=== PATIENT | female | born 1990 | race American Indian/Alaskan Native ===

== ENCOUNTER 2016-10-24 17:39 | Emergency (ER) | payer MEDICAID ==
[2016-10-24] MEDS ORDERED: NACL 0.9% 1000 ML 1,000 ML IV ONE (17:44)
[2016-10-24] MEDS ORDERED: ZOFRAN IV ONE (17:45)
[2016-10-24] MEDS ORDERED: CATAPRES ONE (18:17)
[2016-10-24 18:19] LABS: Basophils % (Auto) 1.3 % (0.0-1.8); Eosinophils % (Auto) 0.9 % (0.0-4.3); Mean Corpuscular HGB Conc 31 % (30-34); Platelet Count 212 K/mm3 (140-440); Red Blood Count 5.58 M/mm3 (3.65-5.03); Red Cell Distribution Width 16.4 % (13.2-15.2); White Blood Count 10.8 K/mm3 (4.5-11.0)
[2016-10-24] MEDS ORDERED: CATAPRES PO ONE (18:22)
[2016-10-24 18:30] LABS: Hematocrit 38.6 % (30.3-42.9); Hemoglobin 11.8 gm/dl (10.1-14.3)
[2016-10-24 18:31] LABS: Mean Corpuscular Hemoglobin 21 pg (28-32); Mean Corpuscular Volume 69 fl (79-97)
[2016-10-24 18:39] LABS: Anion Gap 18 mmol/L; BUN/Creatinine Ratio 13.33; Blood Urea Nitrogen 16 mg/dL (7-17); Calcium 8.9 mg/dL (8.4-10.2); Carbon Dioxide 24 mmol/L (22-30); Chloride 104.7 mmol/L (98-107); Glucose 99 mg/dL (65-100); Potassium 3.6 mmol/L (3.6-5.0); Sodium 143 mmol/L (137-145)
--- NOTE | 2016-10-24 18:49 | Emergency Department Report ---
Entered by XIOMARA GAN, acting as scribe for MARCELLA CORTEZ PA. Chief Complaint: High BP Stated Complaint: ELEVATED BP Time Seen by Provider: 10/24/16 17:43 - HPI History of Present Illness: Patient presents to the ED c/o elevated blood pressure that began today. Patient states her OB sent her to the ED because her blood blood pressure is elevated. Denies bilateral leg swelling, chest pain, headache, nausea, and vomiting. In triage, her blood pressure is 184/128. Denies currently being . Hx of high blood pressure with first . PMHx of kidney insufficiency. - ROS Review of Systems: All systems are negative unless stated in HPI above. - Exam Vital Signs: Vital Signs 10/24/16 18:06 Temperature 98.5 F Pulse Rate 107 H Respiratory 18 Rate Blood Pressure 184/128 O2 Sat by Pulse 100 Oximetry Physical Exam: General: well nourished, well developed, nontoxic in appearance, in no acute distress Respiratory: lungs clear to auscultation bilaterally. No rhonchi. No wheezes. No rales. Cardiovascular: S1/S2 tachycardic at 107 bpm MSE screening note: Focused history and physical exam performed. Due to findings the following was ordered: ED Medical Decision Making - Lab Data Result diagrams: 10/24/16 18:00 10/24/16 18:00 - Medical Decision Making Medical decision making: Patient seen by provider in triage area. Appropriate protocol activated and patient to main ED to be seen by physician. ED Disposition for MSE Condition: Stable This documentation as recorded by the scribe,XIOMARA GAN,accurately reflects the service I personally performed and the decisions made by mi,MARCELLA CORTEZ PA.
[2016-10-24 19:06] LABS: Bacteria,Urine 1+ /HPF (Negative); Bilirubin,Urine NEG (Negative); Blood,Urine LG (Negative); Ketones,Urine NEG (Negative); Leukocyte Esterase,Urine NEG (Negative); Mucus,Urine FEW /HPF; Nitrite,Urine NEG (Negative); Uric Acid Crystals,Urine 1+; Urobilinogen,Urine < 2.0 mg/dL (<2.0)
[2016-10-24 19:07] LABS: Protein,Urine >500 mg/dL (Negative)
[2016-10-24 20:26] VITALS: BP 149/111
--- NOTE | 2016-10-27 19:15 | ED Elopement Review ---
ED Pt Elopement review - Results review Lab results: Laboratory Tests 10/24/16 10/24/16 10/24/16 18:00 18:00 18:00 WBC 10.8 RBC 5.58 H Hgb 11.8 Hct 38.6 MCV 69 L MCH 21 L MCHC 31 RDW 16.4 H Plt Count 212 Lymph % (Auto) 23.1 Chaves % (Auto) 3.6 Eos % (Auto) 0.9 Baso % (Auto) 1.3 Lymph # 2.5 Chaves # 0.4 Eos # 0.1 Baso # 0.1 Seg Neutrophils % 71.1 H Seg Neutrophils # 7.7 Sodium 143 Potassium 3.6 Chloride 104.7 Carbon Dioxide 24 Anion Gap 18 BUN 16 Creatinine 1.2 Estimated GFR > 60 BUN/Creatinine Ratio 13.33 Glucose 99 Calcium 8.9 HCG, Qual Negative Urine Color Urine Turbidity Urine pH Ur Specific Warrior Urine Protein Urine Glucose (UA) Urine Ketones Urine Blood Urine Nitrite Urine Bilirubin Urine Urobilinogen Ur Leukocyte Esterase Urine WBC (Auto) Urine RBC (Auto) U Epithel Cells (Auto) Urine Bacteria (Auto) Uric Acid Crystals Urine Mucus 10/24/16 18:30 WBC RBC Hgb Hct MCV MCH MCHC RDW Plt Count Lymph % (Auto) Chaves % (Auto) Eos % (Auto) Baso % (Auto) Lymph # Chaves # Eos # Baso # Seg Neutrophils % Seg Neutrophils # Sodium Potassium Chloride Carbon Dioxide Anion Gap BUN Creatinine Estimated GFR BUN/Creatinine Ratio Glucose Calcium HCG, Qual Urine Color Yellow Urine Turbidity Clear Urine pH 5.0 Ur Specific Warrior 1.018 Urine Protein >500 Urine Glucose (UA) Neg Urine Ketones Neg Urine Blood Lg Urine Nitrite Neg Urine Bilirubin Neg Urine Urobilinogen < 2.0 Ur Leukocyte Esterase Neg Urine WBC (Auto) 1.0 Urine RBC (Auto) 23.0 U Epithel Cells (Auto) 5.0 Urine Bacteria (Auto) 1+ Uric Acid Crystals 1+ Urine Mucus Few - Call Back decision Pt Call Back Decision: Pt to F/U with PMD
== END 2016-10-24 23:30 | disposition left against medical advice (07) ==
LOC: ED 17:39
DX: R03.0 Elevated blood-pressure reading, without diagnosis of hypertension (principal); Z53.21 Procedure and treatment not carried out due to patient leaving prior to being seen by health care provider
CPT/HCPCS: 36415; 80048; 81001; 82962; 84703; 85025; 93005; 93010